=== PATIENT | female | born 1990 | race Caucasian/White ===

== ENCOUNTER 2017-09-04 18:30 | Emergency (ER) | payer OTHER ==
[~2017-09-04] VITALS: Ht 165.1 cm; Wt 62.6 kg
[~2017-09-04 18:30] MED LIST: ALPRAZOLAM ER1 MG PO; AZITHROMYCIN500 MG PO; B COMPLETE1 EACH PO; BUPRENORPHINE HC2 MG SL; CEPHALEXIN500 MG PO; CIPROFLOXACIN500 MG PO; CLINDAMYCIN HC300 MG PO; CYCLOBENZAPRINE10 MG PO; CYCLOBENZAPRINE5 MG PO; DAILY MULTIPLE1 EACH PO; FLINTSTONES WI1 EACH PO; FLUOXETINE HCL20 MG PO; GABAPENTIN300 MG PO; IBUPROFEN600 MG PO; IMPLANON; LEVOFLOXACIN500 MG PO; MACROBID 100 M100 MG PO; NAPROXEN500 MG PO; NEXIUM20 MG PO; OXYCODONE HCL5 MG PO; PERCOCET 5-3251 EACH PO; PRENATAL FORMU1 EACH PO; PROMETHAZINE HC25 M1 PO; PROMETHAZINE HC25 MG PR; PROMETHEGAN50 MG RC; PROZAC20 MG PO; SEPTRA DS TABL1 EACH PO; SUBUTEX8 MG SL; SUMATRIPTAN SUC25 MG PO; VITAMIN C1000 MG PO; XANAX1 MG PO; ZITHROMAX250 MG PO; ZOFRAN ODT4 MG PO; ZOFRAN8 MG PO
[2017-09-04] MEDS ORDERED: METHADONE10 MG/1 M1 PO (18:53)
[2017-09-04] MEDS ORDERED: KEFLEX500 MG PO (19:38)
== END 2017-09-04 20:08 | disposition home or self-care (01) ==
LOC: ED 18:30
DX: N39.0 Urinary tract infection, site not specified (principal); F17.200 Nicotine dependence, unspecified, uncomplicated; Z88.6 Allergy status to analgesic agent; Z88.5 Allergy status to narcotic agent; Z79.899 Other long term (current) drug therapy
CPT/HCPCS: 81001; 84703; 99283